=== PATIENT | male | born 1960 | race Caucasian/White ===

== ENCOUNTER → 2017-08-23 08:33 | Outpatient (CLI) | payer BC, SELFPAY ==
[2017-08-23 10:19] LABS: AST(SGOT) 28 U/L (15-37); Alanine Aminotransfer ALT/SGPT 40 U/L (16-61); Albumin, Serum 3.5 g/dL (3.2-5.0); Alkaline Phosphatase 73 U/L (45-117); Bilirubin, Direct 0.13 mg/dL (0.00-0.30); Cholesterol 119 mg/dL (200); Globulin 3.6 g/dL (2.2-4.2); High Density Lipoprotein 34 mg/dL; Protein, Total 7.1 g/dL (6.4-8.2); Triglycerides 96 mg/dL; Very Low Density Lipoprotein 19 mg/dL (5-40)
== END ==
PROVIDERS: Family Provider Family Medicine; PCP Family Medicine; Visit Provider Physician Assistant Medical
DX: E78.5 Hyperlipidemia, unspecified (principal); Z79.899 Other long term (current) drug therapy
CPT/HCPCS: 36415; 80061; 80076

== ENCOUNTER → 2018-10-16 06:04 | Outpatient (CLI) | payer OTHER, SELFPAY ==
--- NOTE | 2018-10-22 10:08 | STRESSREP_ITS ---
Stress Test Report Date: 10/16/2018 Procedure: Exercise tolerance test/imaging study Indications: Chest pain Consent: Per the patient Procedure: The patient exercised on a Andrez protocol for 7 minutes achieving a peak heart rate of 144 bpm (87 % predicted maximal heart rate) with a peak blood pressure 222/84 mmHg and a peak MET capacity of 8.5 METs. The baseline ECG demonstrated normal sinus rhythm. The peak exercise ECG demonstrated sinus tachycardia with about [address] depression in the inferior and lateral leads. EKG during recovery revealed normal sinus rhythm with return of ST segments to baseline [There were no cardiac dysrhythmias pretest, during exercise, or recovery]. The functional capacity was considered average for age. There was [no complaint of chest discomfort during exercise or recovery]. The examination was discontinued secondary to dyspnea. Impression: 1. Technically adequate (percent predicted maximal heart rate greater than 85%) exercise tolerance test 2. Stress test is negative for exercise-induced EKG changes of ischemia 3. The test test is negative for exercise-induced chest pain 4. Functional capacity is average for age 5. Nuclear images pending Myocardial perfusion imaging study: Technique: The patient was injected with 14.8 mCi of technetium 99m Cardiolite and subseq uently rest SPECT Cardiolite nuclear imaging was obtained in the horizontal long, vertical long, and short axis views. The patient exercised on a Andrez protocol. Please see above for details. The patient was injected with 44.7 mCi of technetium 99m Cardiolite and subsequently stress SPECT Cardiolite nuclear imaging was obtained in the horizontal long, vertical long, and short axis views. A gated Cardiolite study at peak stress was obtained. Interpretation: Rest and stress SPECT Cardiolite nuclear imaging status post realignment, normalization, and attenuation correction, demonstrates mild decrease in radioisotope uptake in the apex on both the rest and stress images which appears to be due to apical thinning, a normal variant. The gated Cardiolite study demonstrates no significant regional wall motion abnormalities. The reported LVEF is 64 %. Impression: 1. There is no evidence of significant ischemia or infarction. 2. The gated Cardiolite study reports an LVEF of 64 %. This note was generated with Geminareation software. It may contain incorrect words, spelling, and punctuation that were not noted in checking the note before signing.
== END ==
PROVIDERS: Family Provider Family Medicine; PCP Family Medicine; Referring Provider Family Medicine; Visit Provider Family Medicine
DX: I25.10 Atherosclerotic heart disease of native coronary artery without angina pectoris (principal); R07.9 Chest pain, unspecified
CPT/HCPCS: 78452; 93017; A9500; A4216

== ENCOUNTER → 2018-12-08 10:49 | Outpatient (CLI) | payer OTHER, SELFPAY ==
[2018-11-26 14:26] VITALS: BMI 41.3
--- NOTE | 2018-12-08 10:51 | ECHOCS_ITS ---
Reason For Study: CHEST PAIN Procedure This was a 2D Doppler, Color Flow transthoracic echocardiogram. The study was technically difficult. Contrast injection was performed. Exam performed in department. Left Ventricle Normal LV size. Left ventricular systolic function is normal. The estimated ejection fraction is 60 %. Transmitral doppler flow suggestive of impaired relaxation of left ventricle. No regional wall motion abnormalities noted. Right Ventricle Normal RV size. Normal systolic function. Atria The left atrium is mildly enlarged. Normal right atrium. No doppler evidence for ASD. Mitral Valve There is no mitral annular calcification. Normal mitral valve. Trivial mitral valve insufficiency. Tricuspid Valve Normal tricuspid valve. Trivial tricuspid valve insufficiency. Right ventricular systolic pressure estimated to be 34 mmHg. Aortic Valve Trisinus/trileaflet aortic valve. Mild focal aortic valve thickening. Pulmonic Valve The pulmonic valve is not well visualized. Great Vessels Mildly dilated ascending aorta. Pericardium/Pleural No pericardial effusion. Medication 22 gauge I.V. with prn adaptor inserted into right arm. Diluted definity 4.0ml given slow IV push to enhance endocardial definition. MMode/2D Measurements & Calculations LVIDd: 4.8 cm IVSd: 1.2 cm Ao root diam: 4.0 cm LVIDs: 3.3 cm LVPWd: 1.1 cm RVDd: 4.4 cm FS: 32.6 % LAV(MOD-bp): 69.7 ml LA A4 area: 24.0 cm2 LA dimension(2D): 3.9 cm LAV(MOD-bp) Indexed: 28.9 ml/m2 LAV(MOD-sp2): 62.2 ml LAV(MOD-sp4): 77.8 ml RA A4 area: 13.0 cm2 Time Measurements MV dec time: 0.24 sec Doppler Measurements & Calculations MV E max bert: 67.1 cm/sec Lat Peak E' Bert: 10.7 cm/sec Med Peak E' Bert: 10.5 cm/sec MV A max bert: 76.2 cm/sec E/E' lat: 6.3 E/E' med: 6.4 MV E/A: 0.88 Ao V2 max: 187.0 cm/sec LV V1 max: 134.6 cm/sec PA V2 max: 112.5 cm/sec Ao max P.0 mmHg LV V1 max P.2 mmHg TR max bert: 276.2 cm/sec TR max P.5 mmHg Interpretation Summary The study was technically difficult. Contrast injection was performed. Left ventricular systolic function is normal. The estimated ejection fraction is 60 %. The left atrium is mildly enlarged. Trivial mitral valve insufficiency. Trivial tricuspid valve insufficiency. Mild focal aortic valve thickening. Mildly dilated ascending aorta. Right ventricular systolic pressure estimated to be 34 mmHg. Transmitral doppler flow suggestive of impaired relaxation of left ventricle Ordering Physician: Sampson Lora Referring Physician: LUCY MAJANO Performed By: Mari Purdy, RDCS, RVT
== END ==
PROVIDERS: Family Provider Family Medicine; PCP Family Medicine; Referring Provider Internal Medicine Cardiovascular Disease; Visit Provider Internal Medicine Cardiovascular Disease
DX: R07.9 Chest pain, unspecified (principal); I25.10 Atherosclerotic heart disease of native coronary artery without angina pectoris; I10 Essential (primary) hypertension; E78.5 Hyperlipidemia, unspecified; Z95.5 Presence of coronary angioplasty implant and graft
CPT/HCPCS: 93306; Q9957; A4216; C8929

== ENCOUNTER 2018-12-09 06:50 | Day surgery (SDC) | payer OTHER, SELFPAY ==
[2018-11-26 14:26] VITALS: BMI 41.3
--- NOTE | 2018-12-04 16:29 | RAD_ITS ---
STUDY: X-RAY CHEST REASON FOR EXAM: Male, 58 years old. Chest pain TECHNIQUE: PA and lateral views of the chest. COMPARISON: Prior study of 08/12/2016 FINDINGS: The lungs are clear and expanded. There is no demonstrated pleural abnormality. Normal size heart. Normal mediastinum and dale. Normal visualized pulmonary arteries. Normal visualized aortic arch and descending thoracic aorta. There are diffuse degenerative changes of the visualized thoracic spine. Normal visualized ribs, clavicles, and shoulders. There is no demonstrated abnormality of the visualized soft tissue structures of the upper abdomen. RAD/Chest PA and Lateral IMPRESSION: Degenerative changes of the thoracic spine. No acute cardiopulmonary disease process is seen. Findings are stable in the interval. Electronically Signed: Myke Marrero MD at 23:58 EDT , Service support ,
[2018-12-04 16:55] LABS: Absolute Lymphocyte Count 2.17 X10^3/uL (0.83-4.51); Absolute Neutrophil Count 4.5 X10^3/uL (2.0-7.7); Basophil# 0.03 X10^3/uL; Basophil% 0.4 % (0-1); Eosinophil# 0.17 X10^3/uL; Eosinophils% 2.2 % (0-5); Hematocrit 48.6 % (40-54); Hemoglobin 16.7 g/dL (13.0-16.5); Lymphocyte # 2.17 X10^3/ul (4.0); Lymphocyte % 28.4 % (19-41); Mean Corp Hgb Conc 34.4 g/dL (32-36); Mean Corpuscular Volume 90.3 fL (80-94); Mean Platelet Vol. 9.1 fl (6.2-12.0); Monocyte# 0.79 X10^3/uL; Monocyte% 10.3 % (0-10); NRBC Flagged by Analyzer 0 % (0-5); Neutrophil # 4.46 X10^3/uL (2.7-7.7); Neutrophil % 58.4 % (47-70); Platelet Count 183 K/mm3 (150-450); RBC Distribution Width CV 12.4 % (11.6-14.6); RBC Distribution Width SD 40.6 fl (35.1-43.9); Red Blood Count 5.38 M/mm3 (4.6-6.2); White Blood Count 7.6 K/mm3 (4.4-11.0)
[2018-12-04 17:02] LABS: Anion Gap 4 (5-15); BUN 26 mg/dL (7-18); BUN/Creat Ratio 26.9 RATIO (10-20); Chloride 107 mmol/L (98-107); Creatinine, Serum 0.97 mg/dL (0.70-1.30); EST Glomerular Filtration Rate 85 mL/min (>60); Est Glom Filt Rate - Afr Amer 103 mL/min (>60); Glucose 278 mg/dL (74-106); Potassium 4.3 mmol/L (3.5-5.1); Sodium Level 137 mmol/L (136-145)
[2018-12-04 17:34] LABS: International Normalized Ratio 1.1; Prothrombin Time (Protime)PT. 13.6 SECONDS (11.7-14.9)
[2018-12-04 17:35] LABS: Partial Thromboplast Time 26.4 Seconds (24.1-36.2)
[2018-12-09] VITALS (21 sets, daily range): BP systolic 132–182; BP diastolic 65–97; PULSE 58–88; RESP 16–21; TEMP 36.4–36.7; O2SAT 92–97; BMI 38.9; BMI 39.2; BMI 39.1
--- NOTE | 2018-12-09 07:53 | HP.PCM_ITS ---
Problem List (1) Chest pain Status: Acute (2) CAD in [place] artery Status: Chronic (3) Stented coronary artery Status: Chronic (4) Hyperlipidemia Status: Chronic Qualifiers: (5) Essential hypertension Status: Chronic History and Physical Date of Admission: 12/09/18 [facility] [address] [place] [address] OFFICE VISIT Date of Service: 11/26/18 MR#: [id number] Acct: [id number] Name: ALISON MONAE Rep #: [id number] Provider: Sampson monae MD Age/Sex: 58/M Location: [facility] Status: Signed HPI HPI History of Present Illness Details: ALISON MONAE, is a 58 M who presents to the office today for for outpatient cardiovascular follow-up. Since his last visit he states his main concern for the last few months has been the sensation of feeling just somewhat dizzy and/or lightheaded. He is had no near syncope or syncope. He states this dizzy/lightheaded feeling is constant. Thus he is having it today. During this time today he did have an ECG performed. He was in a normal sinus rhythm with no obvious ectopy or dysrhythmia or conduction system events or pauses. Also at the same time his blood pressure appears to be within normal limits without evidence of hypo-or hypertension. He also has noted that he has been having episodes of jaw/neck/left shoulder discomfort. He states this feeling resembles what he had prior to his PCI but is not necessarily identical to what he had prior to his PCI. He states that he can be active and not noticed this but then with very minimal to no activity he can notice it. He has not used his nitroglycerin sublingual as he has not been totally convinced this is cardiac. He has had no issues of ongoing orthopnea or PND or worsening peripheral pitting edema. He did also, based on the symptoms, have a recent exercise tolerance test/imaging study performed in September of this year. This was considered negative for any definitive evidence of inducible myocardial ischemia. However he states since that time he continues with his symptoms that have been otherwise unexplained. 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[employer] Worker Required: No Accompanied by: Self Allergies No Known Allergies Allergy (Verified 11/26/18 14:27) Medications aspirin 81 mg tablet,delayed release 81 mg PO QDAY 11/10/17 [History Confirmed 11/26/18] nitroglycerin 0.4 mg sublingual tablet 0.4 mg SUBLINGUAL Q5-15M PRN #90 tab 11/10/17 [Rx Confirmed 11/26/18] prasugrel 10 mg tablet 10 mg PO QDAY #90 tab 03/25/18 [Rx Confirmed 11/26/18] metoprolol tartrate 25 mg tablet 25 mg PO BID #180 tab 06/30/18 [Rx Confirmed 11/26/18] lisinopril 10 mg tablet 10 mg PO BID #180 tab 07/03/18 [Rx Confirmed 11/26/18] pravastatin 80 mg tablet 80 mg PO QHS #90 tab 07/03/18 [Rx Confirmed 11/26/18] [facility] Medical History Essential hypertension (Chronic) Hyperlipidemia (Chronic) Atherosclerotic heart disease of [place] coronary artery without angina pectoris (Chronic) History of anterior wall myocardial infarction (Chronic 09/01/09) Surgical History Stented coronary artery (Chronic 09/01/09) History of left heart catheterization (Chronic 09/29/09) Family History Father , AGe [address] [place], ETOH CAD (coronary artery disease) Myocardial infarction ETOH abuse Mother , Age 56, Hepatitis C, drug use Hepatitis C Drug abuse Social History (Updated 11/26/18 @ 15:44 by Sampson Lora MD) Smoking Status: Former smoker pack-years: 25 ROS Const Const: Negative for fatigue, weakness, frequent falls, excessive sweating, weight gain or weight loss Eyes Eyes: Negative for transient loss of vision, blurry vision or change in vision ENT ENT: Positive for dizziness (slight, feeling off) and balance problems (slight) Cardio Chest Pain: No Palpitations: No Edema: None Muscle aches with walking: None Additional Details: Patient denies CP, however, reports experiencing intermittant jaw pain which is similar to what was experienced prior to stent 09/01/09. Pain noted with both activity and rest. Resp Respiratory: Negative for SOB with activity or SOB at rest GI GI: Negative vomiting or vomiting blood/hematemesis : Negative for hematuria Musc Musc: Positive for balance problems (slight); negative for muscle aches/ myalgia, muscle weakness or joint pain Skin Skin: Negative non-healing lesions or rash Neuro Neuro: Positive for dizziness (slight, feeling off); negative for lightheadedness, orthostatic symptoms, frequent falls, weakness or blurry vision Cosme Hematologic/Lymphatic: Negative for easy bleeding Endo Endo: Negative for fatigue or excessive sweating Psych Psych: Negative for anxiety or depression Allergy Allergy/Immunology: Negative for hives, Negative for rash Cardiology Exam Const Appearance: cooperative, comfortable, no acute distress and well groomed Nutritional Appearance: overweight Orientation: alert, awake and oriented x3 Head Head: normal to inspection, normocephalic and atraumatic Ears: hearing grossly normal bilaterally Nose: external nose normal Mouth: oral mucosae normal Teeth and gingiva: fair dentition Eyes Eyelids: eyelids normal Conjunctivae: conjunctivae normal Pupils: PERRL EOM: EOM intact bilaterally Neck Neck: normal visual inspection, full ROM and trachea midline Carotids: normal carotid upstroke Chest Chest inspection: normal inspection of the chest and symmetric chest movement Auscultation: Bilateral: Clear to Auscultation Cardio Palpation: normal PMI Rate: regular rate Rhythm: regular rhythm and ectopic beats Heart sounds: S1 normal, S2 normal and positive S4 GI GI: normal to inspection, soft and bowel sounds present Neuro General: alert, awake, oriented x3, gait normal, moves all extremities, no focal sensory deficit and no focal motor deficits Skin Skin: no rashes or lesions noted Extremities Pulses: Normal: Right Radial Pulse, Left Radial Pulse Lower Extremity Edema: None: Bilateral Psych Psychological: normal affect Assessment & Plan 1. Atherosclerosis of [place] coronary artery of [place] heart without angina pectoris I25.10 Proximal LAD 100% stenosis: 3.0 X [address] [place] [employer] [facility]RIS [address] Cedric Gore, [facility] Plan At the present time there are concerns based upon his cardiovascular risk factors, his previous diagnosis, and his ongoing symptoms, as to whether this could represent underlying CAD whether it be his vessel that required PCI in the past versus another vessel versus being noncardiac. Based upon the overall concern, despite his stress test findings, it was felt reasonable that he be considered for reevaluation with diagnostic cardiac catheterization. The procedure and risks were discussed with him. He was agreeable to this approach. Orders Orders: 12 Lead EKG performed by [facility] Today Left Heart Cath/COR/LV Percut Today Echo Complete Today Basic Metabolic Profile (BMP) Today Partial Thromboplast Time Today Prothrombin Time w/INR Today CBC W/Diff, Automated Today Chest PA and Lateral Today 2. Stented coronary artery Z95.5 Plan He does have a history of previous PCI. This was to the LAD. 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 Orders Orders: 12 Lead EKG performed by [facility] Today Left Heart Cath/COR/LV Percut Today Echo Complete Today Basic Metabolic Profile (BMP) Today Partial Thromboplast Time Today Prothrombin Time w/INR Today CBC W/Diff, Automated Today Chest PA and Lateral Today 3. Hyperlipidemia, unspecified hyperlipidemia type E78.5 Plan He will continue risk factor evaluation care. Orders Orders: Left Heart Cath/COR/LV Percut Today Echo Complete Today Basic Metabolic Profile (BMP) Today Partial Thromboplast Time Today Prothrombin Time w/INR Today CBC W/Diff, Automated Today Chest PA and Lateral Today 4. Essential hypertension I10 Plan His blood pressure appears to be stable at this time. We will continue medical management. Orders Orders: Left Heart Cath/COR/LV Percut Today Echo Complete Today Basic Metabolic Profile (BMP) Today Partial Thromboplast Time Today Prothrombin Time w/INR Today CBC W/Diff, Automated Today Chest PA and Lateral Today 5. Jaw pain R68.84 Plan He does have jaw discomfort. Again he states this is similar but not necessarily identical to what he had prior to his previous PCI. Thus based upon the aforementioned concerns he will proceed with continued medical management and evaluation as noted above. 6. Dizziness R42 Plan He does have dizziness. The etiology is unclear. However it does not appear to correlate with underlying changes in rate, rhythm, or blood pressure. Thus he may need to be further evaluated by either ENT or neurology for this. Plan Detail Other Orders Orders: Left Heart Cath/COR/LV Percut Today R07.9 Echo Complete Today R07.9 Basic Metabolic Profile (BMP) Today R07.9 Partial Thromboplast Time Today R07.9 Prothrombin Time w/INR Today R07.9 CBC W/Diff, Automated Today R07.9 Chest PA and Lateral Today R07.9 Additional Comments The above was discussed with him and he was agreeable to this approach. Thank you for allowing me to participate in the care of your patient. Please don't hesitate to call if any issues arise. This note was generated using a voice recognition system and there may be incorrect words, spelling or punctuation that were not noted when reviewing the office note prior to saving. Follow Up 01/04/19 (PFM) Coding Level of Care Code Off vis,est,level 5 Diagnoses Atherosclerosis of [place] coronary artery of [place] heart without angina pectoris I25.10 ??[place] vs. transplanted heart: [place] heart Stented coronary artery Z95.5 Hyperlipidemia, unspecified hyperlipidemia type E78.5 ??Hyperlipidemia type: unspecified Essential hypertension I10 Jaw pain R68.84 Dizziness R42 Coding Level of Care Code Off vis,est,level 5 Diagnoses Atherosclerosis of [place] coronary artery of [place] heart without angina pectoris I25.10 ??[place] vs. transplanted heart: [place] heart Stented coronary artery Z95.5 Hyperlipidemia, unspecified hyperlipidemia type E78.5 ??Hyperlipidemia type: unspecified Essential hypertension I10 Jaw pain R68.84 Dizziness R42 Supplemental Info Supplemental Information Stress Test Report Date: 10/16/2018 Procedure: Exercise tolerance test/imaging study Indications: Chest pain Consent: Per the patient Procedure: The patient exercised on a Andrez protocol for 7 minutes achieving a peak heart rate of 144 bpm (87 % predicted maximal heart rate) with a peak blood pressure 222/84 mmHg and a peak MET capacity of 8.5 METs. The baseline ECG demonstrated normal sinus rhythm. The peak exercise ECG demonstrated sinus tachycardia with about [address] depression in the inferior and lateral leads. EKG during recovery revealed normal sinus rhythm with return of ST segments to baseline [There were no cardiac dysrhythmias pretest, during exercise, or recovery]. The functional capacity was considered average for age. There was [no complaint of chest discomfort during exercise or recovery]. The examination was discontinued secondary to dyspnea. Impression: 1. Technically adequate (percent predicted maximal heart rate greater than 85%) exercise tolerance test 2. Stress test is negative for exercise-induced EKG changes of ischemia 3. The test test is negative for exercise-induced chest pain 4. Functional capacity is average for age 5. Nuclear images pending Myocardial perfusion imaging study: Technique: The patient was injected with 14.8 mCi of technetium 99m Cardiolite and subsequently rest SPECT Cardiolite nuclear imaging was obtained in the horizontal long, vertical long, and short axis views. The patient exercised on a Andrez protocol. Please see above for details. The patient was injected with 44.7 mCi of technetium 99m Cardiolite and subsequently stress SPECT Cardiolite nuclear imaging was obtained in the horizontal long, vertical long, and short axis views. A gated Cardiolite study at peak stress was obtained. Interpretation: Rest and stress SPECT Cardiolite nuclear imaging status post realignment, normalization, and attenuation correction, demonstrates mild decrease in radiois otope uptake in the apex on both the rest and stress images which appears to be due to apical thinning, a normal variant. The gated Cardiolite study demonstrates no significant regional wall motion abnormalities. The reported LVEF is 64 %. Impression: 1. There is no evidence of significant ischemia or infarction. 2. The gated Cardiolite study reports an LVEF of 64 %. Labs LDL Cholesterol 66 mg/dL (0-130) 08/23/17 HDL Cholesterol 34 mg/dL (40-) L 08/23/17 Triglycerides 96 mg/dL (-199) 08/23/17 VLDL Cholesterol 19 mg/dL (5-40) 08/23/17 Diagnostics Electrocardiogram 11/26/18 Stress Test Nuclear Medicine 10/16/18 Stress Test 10/22/18 Chest X-Ray 08/12/16 11/26/18 [id number] <Electronically signed by Sampson samuels MD> Date _ Sampson Lora MD I have re-examined the patient. There are no clinical changes since date of exam.
--- NOTE | 2018-12-09 09:42 | EKG12_ITS ---
Test Reason : POST PCI Blood Pressure : / mmHG Vent. Rate : 063 BPM Atrial Rate : 063 BPM P-R Int : 150 ms QRS Dur : 086 ms QT Int : 416 ms P-R-T Axes : 045 035 037 degrees QTc Int : 425 ms Normal sinus rhythm Normal ECG Confirmed by CATIA BALDWIN, SAMPSON ([id number]), technical editor ERAN PATINO ([id number]) on 12/16/2018 3:12:12 PM Referred By: Sampson Bardales Confirmed By:SAMPSON BARDALES MD
[2018-12-09] MEDS: 0.9% Normal Saline 1,000 ML 150 ML IV (10:15)
[2018-12-09 10:56] LABS: ACT Activated Clotting Time 153 sec (74-137)
[2018-12-09] MEDS: Midazolam 2 MG/2 ML Syringe 1 MG IV (11:36)
[2018-12-09] MEDS: fentaNYL 100 MCG/2 ML Ampul 25 MCG IV (11:36)
[2018-12-09] MEDS: 0.9% NaCl Peripheral Flush Adult/Peds IV (11:37)
--- NOTE | 2018-12-09 13:54 | CRPHASE1_ITS ---
Patient Communication Former Patient:: Phase II PHII Cardiac Rehab Discussed with Patient:: Yes Guide to Cardiac Rehab Given to Patient:: Yes Cardiac Rehab Facility Choice List Given to Patient:: Yes - [facility] Choice Program [facility] CR PHII:: Communication Given to CR, Refer to [facility] Data Processing Consultant:: Sampson Lora PCP:: [facility] Sessions:: 36 sessions - 3 days/wk, 12 weeks Risk Factors/Lifestyle Smoking Status: Former smoker Hx Hypertension: Yes Hx Diabetes Mellitus Type 2: No Height: 1.78 m Weight:: 124 kg BMI: 39.1 Stress: Home/Family ETOH: No Caffeine: Yes Substance Abuse: No Family History: Family History (Last Reviewed 11/26/18 @ 14:27 by Jennifer Shultz) Father CAD (coronary artery disease) Myocardial infarction ETOH abuse Mother Hepatitis C Drug abuse Past Cardiac Illness: Coronary Artery Disease, Previous PCI w/Stent Phase I Education Given On:: [place] Issues Affecting Care:: None Knowledge of Condition:: Yes Hospital Course Pain Description: Burning, Tightness, Aching Cardiac Cath Date:: 12/09/18 Medical/Surgical History Angina:: Yes Diabetes Type II:: No Hypertension:: Yes Dyslipidemia:: Yes Discharge/Home/Social Eval Discharge Disposition: Home Marital Status: Cardiac Rehabilitation Info Cardiac Rehabilitation Program Information: Cardiac Rehabilitation is important for patients like you who are recovering from a heart problem. Cardiac rehabilitation programs are recognized as integral to the continued care of the patient with coronary heart disease. The cardiac rehabilitation program is designed to optimize a patient's physical, psychological, and social functioning. Health respiratory care program director work in cardiac rehabilitation programs and assist you with getting the treatments you need to get stronger and healthier - like exercise, healthy eating habits, and medications. Cardiac rehabilitation has been show to help people with heart problems live longer and have better life enjoyment than people who do not go to cardiac rehabilitation. Please contact the Cardiac Rehabilitation Program at [facility] at in two weeks if you have not heard from them.
--- NOTE | 2018-12-09 13:56 | CRPH1.INSTRU ---
General Education CAD and cardiac anatomy and function:: Patient communicates acknowledgment Explanation of diagnoses and procedures:: Patient communicates acknowledgment Sign/Symptoms of [place]:: Patient communicates acknowledgment Antiplatelet therapy: Needs reinforcement Proper use of NTG-SL: Needs reinforcement Emergency procedures and activation of EMS: Patient communicates acknowledgment Compliance of all prescribed medications: Needs reinforcement Smoking Patient Nicotine/Smoking Risk Factors Are:: Non-smoker Dyslipidemia Patient Dyslipidemia Risk Factors Are:: Triglycerides - 96, HDL - 34, LDL - 66 Recommendations Include:: Lipid profile provided Dyslipidemia Response Code:: Patient communicates acknowledgment Overweight/Obesity Patient Overweight/Obesity Risk Factors Are:: Overweight = 26-29 Overweight/Obesity:: Patient communicates acknowledgment Hypertension Recommendations Include:: Maintain BP <130/85, Decrease/maintain normal body weight, Moderation of ETOH Heart Disease Patient Heart Disease Risk Factors Are:: Family history of heart disease < 65 years old, Previous cardiac event Heart Disease Response Code:: Patient communicates acknowledgment Diabetes Patient Diabetes Risk Factors Are:: No documented hx of diabetes Metabolic Syndrome Patient Metabolic Syndrome Risk Factors Are [3 of 5]:: Waist circumference > 35 [female] or 40 [male], Hypertension Sedentary Patient Sedentary Risk Factors Are:: Lack of regular exercise Recommendations Include:: Discussed home walking program Stress Patient Stress Risk Factors Are:: Patient denies stress as a risk factor
[2018-12-09] MEDS: Loratadine 10 MG Tablet PO (15:48)
[2018-12-09] MEDS: Metoprolol Tartrate 25 MG Tablet PO (21:24)
[2018-12-09] MEDS: Atorvastatin Calcium 80 MG Tablet PO (21:24)
[2018-12-09] MEDS: Lisinopril 10 MG Tablet PO (21:24)
[2018-12-09] MEDS: diazePAM 5 MG Tablet PO (21:27)
[2018-12-10] VITALS (12 sets, daily range): BP systolic 127–177; BP diastolic 62–92; PULSE 55–94; RESP 17–23; TEMP 36.3–36.9; O2SAT 91–95
[2018-12-10 05:24] LABS: Hematocrit 44.8 % (40-54); Hemoglobin 15.1 g/dL (13.0-16.5); Mean Corp Hgb Conc 33.7 g/dL (32-36); Mean Corpuscular Hgb 30.9 pg (27.0-32.0); Mean Corpuscular Volume 91.8 fL (80-94); Mean Platelet Vol. 8.7 fl (6.2-12.0); Platelet Count 163 K/mm3 (150-450); RBC Distribution Width CV 12.5 % (11.6-14.6); RBC Distribution Width SD 42.5 fl (35.1-43.9); Red Blood Count 4.88 M/mm3 (4.6-6.2)
[2018-12-10 05:55] LABS: ALB/GLOB Ratio 0.8 RATIO (0.9-2.4); AST(SGOT) 16 U/L (15-37); Alanine Aminotransfer ALT/SGPT 26 U/L (16-61); Albumin, Serum 3.1 g/dL (3.2-5.0); Alkaline Phosphatase 71 U/L (45-117); Anion Gap 7 (5-15); BUN 16 mg/dL (7-18); BUN/Creat Ratio 23.5 RATIO (10-20); Calcium,Total 8.5 mg/dL (8.5-10.1); Chloride 106 mmol/L (98-107); Cholesterol 141 mg/dL (200); Creatinine, Serum 0.68 mg/dL (0.70-1.30); EST Glomerular Filtration Rate 128 mL/min (>60); Est Glom Filt Rate - Afr Amer 154 mL/min (>60); Estimated Creatinine Clearance 125.25 ml/min; Globulin 3.9 g/dL (2.2-4.2); Glucose 266 mg/dL (74-106); High Density Lipoprotein 31 mg/dL; Potassium 4.2 mmol/L (3.5-5.1); Sodium Level 137 mmol/L (136-145); Triglycerides 152 mg/dL; Very Low Density Lipoprotein 30 mg/dL (5-40)
--- NOTE | 2018-12-10 08:22 | PCM.DC ---
- Discharge Diagnoses Current Active Problems: Current Active and Chronic Problems (Last Reviewed 11/26/18 @ 14:27 by Jennifer Shultz) Chest pain (Acute) CAD in [place] artery (Chronic) Reason(s) for Visit for Discharge Instructions: Chest pain/angina pectoris You will use the following diet at home:: Cardiac Your food should be the consistency of: Regular Discharge Activity: May Not Drive - May not drive: X48 hours, May Shower - May shower today, May Take a Tub Bath - May not take a tub bath x7 days May resume sexual activity in: 2 weeks Weight Bearing Status: Weight bearing as tolerated Lifting Restrictions: Avoid heavy exertional lifting/activity until at least 12-14-18 and then res Call your doctor if your incision/area has: Continuous Slow Oozing, Sudden Increased Bleeding, Increased Pain/ Swelling, Increased Redness, Foul Smelling Discharge Call your doctor if you observe: Fever of 101 or Higher, Shortness of breath, Fainting spells, Chest pain, Calf discomfort Change Dressing in (Days):: 1 Remove Dressing in (days):: 1 Cleanse incision/area with: Soap & Water Additional Instructions: Medication change: Change lisinopril from 10 mg orally twice a day to 20 mg orally twice a day Allergies/Adverse Reactions: Allergies No Known Allergies Allergy (Verified 11/26/18 14:27) Medications to take at Discharge aspirin 81 mg tablet,delayed release 325 mg PO QDAY 11/10/17 nitroglycerin 0.4 mg sublingual tablet 0.4 mg SUBLINGUAL Q5-15M PRN #90 tab 11/10/17 prasugrel 10 mg tablet 10 mg PO QDAY #90 tab 03/25/18 metoprolol tartrate 25 mg tablet 25 mg PO BID #180 tab 06/30/18 pravastatin 80 mg tablet 80 mg PO QHS #90 tab 07/03/18 Lisinopril [Zestril] 20 mg PO BID #180 tab 12/10/18 Loratadine [Claritin] 10 mg PO DAILY tablet 12/10/18 The following prescriptions were given: Lisinopril [Zestril] 20 mg PO BID #180 tab Transmission Status: Pending to [id number] Primary Care Physician: Hu Hodges MD [Primary Care Provider] - Test Results: Test results from this visit will be discussed in further detail at your follow-up appointment, if applicable. Please Follow Up With: Sampson Lora MD When: [facility] to schedule outpatient follow up appointment
--- NOTE | 2018-12-10 08:39 | DS.PCM_ITS ---
Discharge Date and Diagnosis - Problem List Patient Problems: Active and Suspected Problems (Last Reviewed 11/26/18 @ 14:27 by Jennifer Shultz) Chest pain (Acute) Date of Admission: 12/09/18 Date of Discharge: 12/10/18 - Primary Discharge Diagnosis Active and Suspected Problems (Last Reviewed 11/26/18 @ 14:27 by Jennifer Shultz) Chest pain (Acute) - Secondary Discharge Diagnosis Chronic Problems (Last Reviewed 11/26/18 @ 14:27 by Jennifer Shultz) CAD in [place] artery (Chronic) Essential hypertension (Chronic) Hyperlipidemia (Chronic) Stented coronary artery (Chronic 12/09/18) Proximal LAD 100% stenosis: 3.0 X [address] [place] Sprint CHRIS [address]. Cedric Gore, [facility] 09/01/2009; CHRIS to mid RCA (4.0 X 32 mm Promus Syncergy) per CANDIDA @ [facility] 12/09/2018 Atherosclerotic heart disease of [place] coronary artery without angina pectoris (Chronic) Proximal LAD 100% stenosis: 3.0 X [address] [place] Sprint CHRIS [address]. Cedric Gore, [facility] Hospital Course and Treatment Procedures: Cardiac catheterization, - - Cardiac intervention Summary of Care Provided: The patient is a 58 year old white male with a past medical history of CAD status post LAD PCI remote who presented for symptoms concerning for angina pectoris who was referred for further evaluation with diagnostic cardiac catheterization. Diagnostic cardiac catheterization was performed and demonstrated findings of overall preserved left ventricular wall motion and systolic function, and LAD stent which was patent, no angiographically significant appearing CAD in the LCx distribution, however, he did have angiographically significant appearing CAD in the RCA distribution. He subsequently underwent RCA PCI/CHRIS. He was monitored in the ICU overnight. He appeared to be symptomatically and hemodynamically stable. On this day he was felt appropriate for discharge home for continued outpatient cardiovascular follow-up. [] Patient Problems: Active and Suspected Problems (Last Reviewed 11/26/18 @ 14:27 by Jennifer Shultz) Chest pain (Acute) Subjective: This is a 58-year-old white male who appears to be awake and alert and in no acute distress. - Physical Exam General: Alert, Oriented x3, Cooperative, No apparent distress HEENT: Atraumatic, PERRLA, EOMI, Normocephalic Oral: Moist Mucosa Neck: Supple, No JVD Lungs: Clear to auscultation Cardiovascular: Regular rate, Regular Rhythm, Normal S1, Normal S2 Abdomen: Bowel Sounds Present, Soft, Non Tender Extremities: No clubbing, No cyanosis, No edema Skin: No rashes Neurological: Neuro grossly intact Psych/Mental Status: Normal Affect Comment: Right femoral artery: Pulse 2+/4+: No bruits: No hematoma Vital Signs Temp Pulse Resp BP Pulse Ox 97.4 F L 65 19 H 134/92 H 93 12/10/18 04:00 12/10/18 06:00 12/10/18 06:00 12/10/18 06:00 12/10/18 07:25 Oxygen Delivery Method Room Air Weight: 279 lb 8.738 oz Body Mass Index (BMI) 39.2 Intake and Output for Last 24 Hours 12/08/18 12/09/18 12/10/18 23:59 23:59 23:59 Intake Total 1660 / 2060 400 / 400 Output Total 300 / 300 Balance 1360 / 1760 400 / 400 Laboratory Tests Past 24 Hrs 12/09/18 12/10/18 12/10/18 09:17 05:10 05:10 WBC 8.0 RBC 4.88 Hgb 15.1 Hct 44.8 MCV 91.8 MCH 30.9 MCHC 33.7 RDW Std Deviation 42.5 RDW Coeff of Santosh 12.5 Plt Count 163 MPV 8.7 Activated Clotting Time 153 H Sodium 137 Potassium 4.2 Chloride 106 Carbon Dioxide 24.0 Anion Gap 7 BUN 16 Creatinine 0.68 L Estim Creat Clear Calc 125.25 Est GFR (MDRD) Af Amer 154 Est GFR (MDRD) Non-Af 128 BUN/Creatinine Ratio 23.5 H Glucose 266 H Calcium 8.5 Total Bilirubin 0.50 AST 16 ALT 26 Alkaline Phosphatase 71 Total Protein 7.0 Albumin 3.1 L Globulin 3.9 Albumin/Globulin Ratio 0.8 L Triglycerides 152 Cholesterol 141 LDL Cholesterol 80 VLDL Cholesterol 30 HDL Cholesterol 31 L Discharge Activity: May Not Drive - May not drive: X48 hours, May Shower - May shower today, May Take a Tub Bath - May not take a tub bath x7 days May resume sexual activity in: 2 weeks Weight Bearing Status: Weight bearing as tolerated Call your doctor if your incision/area has: Continuous Slow Oozing, Sudden Increased Bleeding, Increased Pain/ Swelling, Increased Redness, Foul Smelling Discharge Call your doctor if you observe: Fever of 101 or Higher, Shortness of breath, Fainting spells, Chest pain, Calf discomfort Change Dressing in (Days):: 1 Remove Dressing in (days):: 1 Cleanse incision/area with: Soap & Water Home Medications: Medications to take at Discharge aspirin 81 mg tablet,delayed release 325 mg PO QDAY 11/10/17 nitroglycerin 0.4 mg sublingual tablet 0.4 mg SUBLINGUAL Q5-15M PRN #90 tab 11/10/17 prasugrel 10 mg tablet 10 mg PO QDAY #90 tab 03/25/18 metoprolol tartrate 25 mg tablet 25 mg PO BID #180 tab 06/30/18 pravastatin 80 mg tablet 80 mg PO QHS #90 tab 07/03/18 Lisinopril [Zestril] 20 mg PO BID #180 tab 12/10/18 Loratadine [Claritin] 10 mg PO DAILY tablet 12/10/18 Following Prescrptions Were Given to Patient: Lisinopril [Zestril] 20 mg PO BID #180 tab Transmission Status: Pending to [id number] Primary Care Physician: Hu Hodges MD [Primary Care Provider] - Please Follow Up With: Sampson Lora MD When: [facility] to schedule outpatient follow up appointment Disposition: Home Minutes spent on discharge:: 45 Patient Condition:: Stable Medical Necessity - Tobacco Use Smoking Status: Former smoker Tobacco Use: Non-smoker Meaningful Use Info Meaningful Use Diagnoses (Choose all that apply): None applicable
[2018-12-10] MEDS: Aspirin E.C. 81 MG Tablet PO (08:57)
[2018-12-10] MEDS: Metoprolol Tartrate 25 MG Tablet PO (08:58)
[2018-12-10] MEDS: Lisinopril 20 MG Tablet PO (09:01)
--- NOTE | 2018-12-10 10:00 | EKG12_ITS ---
Test Reason : AM EKG Blood Pressure : / mmHG Vent. Rate : 068 BPM Atrial Rate : 068 BPM P-R Int : 148 ms QRS Dur : 086 ms QT Int : 412 ms P-R-T Axes : 039 018 039 degrees QTc Int : 438 ms Normal sinus rhythm Normal ECG Confirmed by CATIA BALDWIN, SAMPSON ([id number]), food editor WOOD ANGUIANO ([id number]) on 12/16/2018 11:11:45 AM Referred By: Sampson Bardales Confirmed By:SAMPSON BARDALES MD
--- NOTE | 2018-12-17 09:58 | CL.I_ITS ---
Patient Name: LAWRENCE MONAE Study Date: 12/09/2018 Performing: Lawrence Singh MD Ht: 70 inches 177.8 cm : 1960 Wt: 270.99 lbs 122.92 kg Age: 58 Gender: male BSA: 2.37 PROCEDURE(S) PERFORMED [id number] W OR WO PTCA, SINGLE CORONARY ARTERY CLINICAL PROFILE AND CO-MORBIDITIES Indications: New Onset Angina <= 2 months, Worsening Angina, Stable Known CAD Heart Failure: None Stress/Imaging Date: 10/22/2018 Stress Test with SPECT MPI: Negative CAD Presentations: Unstable angina. CONCLUSIONS Successful PTCA/CHRIS mid RCA with a 4.0 x 32 Promus Synergy, post dilated proixmally with a 4.5 and 5. 0 NC Balloon; 85%-->0%, no dissection. 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 Lora Successful Mynx Control to RFA. DESCRIPTION OF PROCEDURE The patient arrived to the procedure lab. The risks and benefits of the procedure as well as a full d escription of our services here and current unavailability of surgical backup were fully explained to the patient and/or their significant other prior to the catheterization. The Timeout was completed, verifying the correct patient and procedure. The patient's procedural site was prepped and draped in the usual fashion. Local anesthetic was given subcutaneously to right groin region with Lidocaine 2% Using a modified Seldinger technique,arterial access was obtained via the right femoral artery, a 4Fr sheath was inserted Left Coronary Artery selective angiography was performed in multiple views using a 4 Fr. JL5 catheter. Right Coronary Artery selective angiography was then performed in multiple vie ws using a 4 Fr. 3DRC catheter. Left Ventriculography was performed in SUAZO projection using a 4 Fr. P igtail catheter. LV to AO pullback pressures were then recorded.The images were reviewed and options discussed. A decision was then made to proceed with an Intervention, IVUS or other adjunc t procedure. Arterial sheath was exchanged for a 6fr 55cm sheath HS II Guide catheter was inserted and engaged into the RCA. BMW Guide wire was advanced to the RCA. Emerge 2.0x12 Balloon catheter was inserted. P TCA balloon inflated at 10 atms for 15 secs. PTCA balloon inflated at 12 atms for 15 secs. Angiogram performed post balloon dilatation. Emerge 3.0x12 Balloon catheter was inserted. PTCA balloon inflated at 8 atms for 12 secs. Angiogram performed post balloon dilatation. Synergy 4.0x32 Drug Eluting sten t was inserted. Angiogram performed post stent deployment. NC Emerge 4.50x8 Balloon catheter was inse rted. Angiogram performed post balloon dilatation. NC Emerge 4.5x8 Balloon catheter was inserted. PTC A balloon inflated at 6 atms for 6 secs. PTCA balloon inflated at 7 atms for 9 secs. Angiogram perfor med post balloon dilatation. NC Emerge 5.00x8 Balloon catheter was inserted. PTCA balloon inflated at 14 atms for 24 secs. Angiogram performed post balloon dilatation. Arterial sheath was exchanged for a 6 Fr Sheath. Contrast was injected through the sheath and the Right Iliac and Femoral artery were assessed for possible closure device. The arterial sheath was pulled and a Mynx closure device was deployed for hemostasis INTERVENTION INFORMATION LESION SITE: RCA (Mid) Lesion Complexity: High/C, lesion at bifurcation: No, thrombus present: No, lesion length: 32 mm, cul prit lesion: Yes Pre Stenosis: 85 % Pre intervention [place] flow: 3 PROCEDURE: Drug Eluting Stent with pre and post dilatation Post Stenosis: 0 % Post intervention [place] flow: 3 Lesion Devices: Joe .014 BMW [place] Straight 190cm [employer]tronic 6 Fr HSII 100cm Guide Catheter Mo Sci EMERGE MR 2.00x12 BALLOON Mo Sci EMERGE MR 3.00x12 BALLOON Mo Sci Synergy MR CHRIS 4.00x32 Mo Sci NC EMERGE MR 4.50x08 BALLOON Mo Sci NC EMERGE MR 5.00x08 BALLOON COMPLICATIONS No Complications PROCEDURE MEDICATIONS Versed 1 mg IV Oxygen: 2 L/min via nasal cannula Heparin 6000 unit(s) IV 12/09/2018 08:48:10 Nitro 200 mcg IC 12/09/2018 08:48:57 Nitro 200 mcg IC 12/09/2018 08:48:57 Nitro 200 mcg IC 12/09/2018 09:08:15 SUMMARY OF HEMODYNAMIC DATA Time AIR REST ECG 07:06:23 AO 110/84 (98) SA 08:29:05 LV 158/-4, 29 08:36:21 LV 159/-5, 26 08:36:27 LV 160/-5, 23 08:37:25 LVp 159/-5, 24 08:37:30 AOp 144/91 (115) 08:37:35 Signed By Lawrence Singh MD On 12/09/2018 09:36:55 Lawrence Singh MD
--- NOTE | 2018-12-17 09:59 | CL.D_ITS ---
Patient Name: ALISON MONAE Study Date: 12/09/2018 Performing: Sampson Lora MD Ht: 70 inches 177.8 cm : 1960 Wt: 271.3 lbs 122.92 kg Age: 58 Gender: male BSA: 2.37 PROCEDURE(S) PERFORMED [id number]/COR/LV NN41-VUM W OR WO PTCA, SINGLE CORONARY ARTERY CLINICAL PROFILE AND INDICATIONS Indications: New Onset Angina <= 2 months, Worsening Angina, Stable Known CAD, Worsening Angina Heart Failure: None Stress/Imaging Date: 10/22/2018Stress Test with SPECT MPI: Negative Angina Classification Anginal Classification w/in 2 Weeks: CCS III CAD Presentations: Unstable angina. Unstable angina. CONCLUSIONS Elevated Left Ventricular End Diastolic Pressure Normal LV size, wall motion,and systolic function LVEF: by LV gram 60 % [place] Multivessel CAD RECOMMENDATIONS Risk factor modification Medical therapy Referred for immediate PCI DESCRIPTION OF PROCEDURE The patient arrived to the procedure lab. The risks and benefits of the procedure as well as a full d escription of our services here and current unavailability of surgical backup were fully explained to the patient and/or their significant other prior to the catheterization. The Timeout was completed, verifying the correct patient and procedure. The patient's procedural site was prepped and draped in the usual fashion. Local anesthetic was given subcutaneously to right groin region with Lidocaine 2%. Using a modified Seldinger technique, arterial access was obtained via the right femoral artery, a 4 Fr sheath was inserted Left Coronary Artery selective angiography was performed in multiple views us ing a 4 Fr. JL5 catheter. Right Coronary Artery selective angiography was then performed in multiple views using a 4 Fr. 3DRC catheter. Left Ventriculography was performed in SUAZO projection using a 4 Fr . Pigtail catheter. LV to AO pullback pressures were then recorded.Contrast was injected through the sheath and the Right Iliac and Femoral artery were assessed for possible closure device.T he arterial sheath was pulled and a Mynx closure device was deployed for hemostasis CORONARY ANGIOGRAPHY LEFT HEART ASSESSMENT Left Ventricular Ejection Fraction: by LV Gram 60 % Normal LV wall motion Elevated Left Ventricular End Diastolic Pressure LVEDP: 26 mmHg LEFT MAIN: Angiographically normal LEFT ANTERIOR DESCENDING ARTERY: PROX LAD: Previously placed stent is patent MID LAD: smooth eccentric 10 - 25 % Stenosis CIRCUMFLEX ARTERY: Mild luminal irregularities RAMUS: Mild luminal irregularities RIGHT CORONARY ARTERY: PROX RCA: Mild luminal irregularities MID RCA: 90 % Stenosis DISTAL RCA: Mild luminal irregularities VALVE FINDINGS: Normal Aortic Valve function Normal Mitral Valve function AORTIC ROOT: Angiographically normal COMPLICATIONS No Complications PROCEDURE MEDICATIONS Versed 1 mg IV Oxygen: 2 L/min via nasal cannula Heparin 6000 unit(s) IV 12/09/2018 08:48:10 Nitro 200 mcg IC 12/09/2018 08:48:57 Nitro 200 mcg IC 12/09/2018 08:48:57 Nitro 200 mcg IC 12/09/2018 09:08:15 SUMMARY OF HEMODYNAMIC DATA Time AIR REST ECG 07:06:23 AO 110/84 (98) SA 08:29:05 LV 158/-4, 29 08:36:21 LV 159/-5, 26 08:36:27 LV 160/-5, 23 08:37:25 LVp 159/-5, 24 08:37:30 AOp 144/91 (115) 08:37:35 Signed By Sampson Lora MD On 12/09/2018 20:41:17 Sampson Lora MD
== END 2018-12-10 08:26 | disposition home or self-care (01) ==
LOC: CLSP 06:51 → ICU 09:29
PROVIDERS: Internal Medicine Cardiovascular Disease; Family Provider Family Medicine; PCP Family Medicine; Referring Provider Internal Medicine Cardiovascular Disease; Visit Provider Internal Medicine Cardiovascular Disease
DX: I25.10 Atherosclerotic heart disease of native coronary artery without angina pectoris (principal); I25.2 Old myocardial infarction; I10 Essential (primary) hypertension; E78.5 Hyperlipidemia, unspecified; R07.9 Chest pain, unspecified; R68.84 Jaw pain; R42 Dizziness and giddiness; Z95.5 Presence of coronary angioplasty implant and graft; Z79.82 Long term (current) use of aspirin; Z79.899 Other long term (current) drug therapy; Z87.891 Personal history of nicotine dependence
CPT/HCPCS: 36415; 71046; 80048; 80053; 80061; 85025; 85027; 85347; 85610; 85730; 92928; 93005; 93458; C1760; J7030; J7040; Q9967; A4216; C1725; C1769; C1874; C1887; C1894; C9600

== ENCOUNTER → 2019-03-01 08:24 | Outpatient (CLI) | payer OTHER, SELFPAY ==
[2018-12-09 13:56] VITALS: BMI 39.1
[2019-03-01 08:13] VITALS: BMI 37.5
--- NOTE | 2019-03-01 08:26 | RAD_ITS ---
STUDY: X-RAY CHEST REASON FOR EXAM: Male, 58 years old. 3 week history of cough. TECHNIQUE: PA and lateral views of the chest. COMPARISON: Comparison is made with prior study dated December 04, 2018. FINDINGS: The lungs are clear and expanded. There is no demonstrated pleural abnormality. Normal size heart. Normal mediastinum and dale. Normal visualized pulmonary arteries. Normal visualized aortic arch and descending thoracic aorta. There are diffuse degenerative changes of the visualized thoracic spine. Normal visualized ribs, clavicles, and shoulders. There is no demonstrated abnormality of the visualized soft tissue structures of the upper abdomen. RAD/Chest PA and Lateral IMPRESSION: No acute abnormality is seen. Electronically Signed: Cirilo Carias, at 9:19 EST , Service support ,
== END ==
PROVIDERS: Family Provider Family Medicine; PCP Family Medicine; Referring Provider Physician Assistant; Visit Provider Physician Assistant
DX: R05 Cough (principal)
CPT/HCPCS: 71046

== ENCOUNTER 2019-04-12 09:30 | Outpatient (RCR) | payer OTHER, SELFPAY ==
[2018-12-09 13:56] VITALS: BMI 39.1
[2019-04-08 12:46] VITALS: BMI 37.5
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
--- NOTE | 2019-05-28 13:37 | HP.PT.NRP ---
HP - Discharge Summary (1) - Patient Information ALISON MONAE was seen in my office for initial evaluation on 04/08/19. The following Plan of Care was established for this patient: Initial Frequency: 1-2x /Week Initial Duration: 2-4 Weeks - Anticipated Interventions Patient/Client Instruction: Educate patient on: Condition, Plan of Care For the Purpose of:: To increase tolerance to activity/condition/position For the Purpose of:: To increase tolerance to activity/condition/position This patient was last seen in our office 04/12/19. Pertinent comments regarding their Physical therapy will appear below: Pt seen two visits of positional treatments for vertigo. He was to f/u a week later but did not schedule or attend. At this point, it has been over two weeks and I will discontinue due to nonattendance. At this point I will be discontinuing this patient from physical therapy. I would be happy to see this patient again in the future if found appropriate by the physician. Thank you! Himanshu Robles, DPT, OCS, CSCS
== END 2019-04-12 19:00 | disposition home or self-care (01) ==
LOC: PT 09:30
PROVIDERS: PCP Family Medicine; Referring Provider Otolaryngology; Visit Provider Otolaryngology
DX: H81.10 Benign paroxysmal vertigo, unspecified ear (principal)
CPT/HCPCS: 97112; 97161

== ENCOUNTER → 2019-05-31 09:09 | Outpatient (CLI) | payer OTHER, SELFPAY ==
[2018-12-09 13:56] VITALS: BMI 39.1
[2019-04-08 12:46] VITALS: BMI 37.5
[2019-05-31 10:54] LABS: AST(SGOT) 15 U/L (15-37); Alanine Aminotransfer ALT/SGPT 26 U/L (16-61); Albumin, Serum 3.6 g/dL (3.2-5.0); Alkaline Phosphatase 80 U/L (45-117); Bilirubin, Direct 0.14 mg/dL (0.00-0.30); Cholesterol 173 mg/dL (200); Globulin 3.7 g/dL (2.2-4.2); High Density Lipoprotein 38 mg/dL; Protein, Total 7.3 g/dL (6.4-8.2); Triglycerides 142 mg/dL; Very Low Density Lipoprotein 28 mg/dL (5-40)
== END ==
PROVIDERS: PCP Family Medicine; Referring Provider Internal Medicine Cardiovascular Disease; Visit Provider Internal Medicine Cardiovascular Disease
DX: E78.5 Hyperlipidemia, unspecified (principal); I25.10 Atherosclerotic heart disease of native coronary artery without angina pectoris
CPT/HCPCS: 36415; 80061; 80076

== ENCOUNTER → 2019-11-22 08:31 | Outpatient (CLI) | payer BC, SELFPAY ==
[2018-12-09 13:56] VITALS: BMI 39.1
[2019-10-16 09:00] VITALS: BMI 39.4
[2019-11-22 09:38] LABS: AST(SGOT) 17 U/L (15-37); Alanine Aminotransfer ALT/SGPT 32 U/L (16-61); Albumin, Serum 3.7 g/dL (3.2-5.0); Alkaline Phosphatase 72 U/L (45-117); Bilirubin, Direct 0.13 mg/dL (0.00-0.30); Cholesterol 179 mg/dL (200); Globulin 3.7 g/dL (2.2-4.2); High Density Lipoprotein 42 mg/dL; Protein, Total 7.4 g/dL (6.4-8.2); Triglycerides 125 mg/dL; Very Low Density Lipoprotein 25 mg/dL (5-40)
== END ==
PROVIDERS: PCP Family Medicine; Referring Provider Internal Medicine Cardiovascular Disease; Visit Provider Internal Medicine Cardiovascular Disease
DX: E78.00 Pure hypercholesterolemia, unspecified (principal); E78.5 Hyperlipidemia, unspecified
CPT/HCPCS: 36415; 80061; 80076

== ENCOUNTER → 2020-01-17 12:04 | Outpatient (CLI) | payer BC, SELFPAY ==
[2018-12-09 13:56] VITALS: BMI 39.1
[2019-10-16 09:00] VITALS: BMI 39.4
--- NOTE | 2020-01-17 | LES_PTH ---
PATIENT: ALISON MONAE LOC: [facility] U#:[id number] AGE/SX: 64/M ROOM: RE01/17/[address]: Dr. Himanshu Echevarria MD : 1960 BED: DIS: SPEC #: [id number] RECD: 01/17/20 12:04 STATUS: MARK BETTY #: [id number] KAREN: 01/17/20 00:[address]: Himanshu Echevarria DEPT: SURGICAL PATHOLOGY RECD BY: Denita Sun ENTERED: 01/18/20 05:48 SP TYPE: Lesion OTHR DR: Dr. 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 Solar elastosis. AM:chelsy 01/18/20 COMMENT Case has been reviewed in consultation with Dr. Joy who concurs with the above diagnosis. IDC:SJ MICROSCOPIC DESCRIPTION Slides are reviewed. GROSS DESCRIPTION Received in fixative is one container labeled with the patient's name and designated lesion in front of left ear. The specimen consists of a piece of crabtree-white skin ellipse measuring 1.7 x 1 cm and up to 0.3 cm in thickness. The specimen is inked, serially sectioned and submitted entirely in one cassette. / SJ:chelsy 01/17/20 TC:0 CPT: 49570
== END ==
PROVIDERS: PCP Family Medicine; Referring Provider Otolaryngology; Visit Provider Otolaryngology
DX: L98.9 Disorder of the skin and subcutaneous tissue, unspecified (principal)
CPT/HCPCS: 88305

== ENCOUNTER → 2020-04-15 08:37 | Outpatient (CLI) | payer BC, SELFPAY ==
[2018-12-09 13:56] VITALS: BMI 39.1
[2019-10-16 09:00] VITALS: BMI 39.4
[2020-04-15 10:11] LABS: AST(SGOT) 13 U/L (15-37); Alanine Aminotransfer ALT/SGPT 29 U/L (16-61); Albumin, Serum 3.7 g/dL (3.2-5.0); Alkaline Phosphatase 77 U/L (45-117); Bilirubin, Direct 0.17 mg/dL (0.00-0.30); Cholesterol 162 mg/dL (200); Globulin 3.6 g/dL (2.2-4.2); High Density Lipoprotein 38 mg/dL; Protein, Total 7.3 g/dL (6.4-8.2); Triglycerides 195 mg/dL; Very Low Density Lipoprotein 39 mg/dL (5-40)
== END ==
PROVIDERS: PCP Family Medicine; Referring Provider Internal Medicine Cardiovascular Disease; Visit Provider Internal Medicine Cardiovascular Disease
DX: E78.00 Pure hypercholesterolemia, unspecified (principal); E78.5 Hyperlipidemia, unspecified
CPT/HCPCS: 36415; 80061; 80076

== ENCOUNTER → 2020-10-21 08:57 | Outpatient (CLI) | payer BC, SELFPAY ==
[2018-12-09 13:56] VITALS: BMI 39.1
[2020-05-03 09:01] VITALS: BMI 38.7
[2020-10-21 09:54] LABS: AST(SGOT) 16 U/L (15-37); Alanine Aminotransfer ALT/SGPT 28 U/L (16-61); Albumin, Serum 3.5 g/dL (3.2-5.0); Alkaline Phosphatase 59 U/L (45-117); Bilirubin, Direct 0.12 mg/dL (0.00-0.30); Cholesterol 135 mg/dL (200); Globulin 3.5 g/dL (2.2-4.2); High Density Lipoprotein 40 mg/dL; Triglycerides 93 mg/dL; Very Low Density Lipoprotein 19 mg/dL (5-40)
== END ==
PROVIDERS: PCP Family Medicine; Referring Provider Internal Medicine Cardiovascular Disease; Visit Provider Internal Medicine Cardiovascular Disease
DX: E78.00 Pure hypercholesterolemia, unspecified (principal); E78.5 Hyperlipidemia, unspecified
CPT/HCPCS: 36415; 80061; 80076

== ENCOUNTER → 2021-08-06 | Outpatient (CLI) | payer SELFPAY ==
[2018-12-09 13:56] VITALS: BMI 39.1
[2021-08-06 12:29] LABS: Hemoglobin A1c 10.5 % (3.8-5.6)
== END | disposition home or self-care (01) ==
LOC: BIMLAB 10:14
PROVIDERS: PCP Family Medicine; Referring Provider Family Medicine; Visit Provider Family Medicine
DX: E11.9 Type 2 diabetes mellitus without complications (principal)
CPT/HCPCS: 36415; 83036

== ENCOUNTER → 2021-11-01 | Outpatient (CLI) | payer SELFPAY ==
[2018-12-09 13:56] VITALS: BMI 39.1
[2021-11-01 15:19] LABS: Hemoglobin A1c 9.3 % (3.8-5.6)
== END | disposition home or self-care (01) ==
PROVIDERS: PCP Family Medicine; Referring Provider Emergency Medicine; Visit Provider Emergency Medicine
DX: E11.9 Type 2 diabetes mellitus without complications (principal)
CPT/HCPCS: 36415; 83036

== ENCOUNTER → 2021-11-27 | Outpatient (CLI) | payer SELFPAY ==
[2018-12-09 13:56] VITALS: BMI 39.1
[2021-11-27 09:07] LABS: AST(SGOT) 14 U/L (15-37); Alanine Aminotransfer ALT/SGPT 27 U/L (16-61); Albumin, Serum 3.4 g/dL (3.2-5.0); Alkaline Phosphatase 73 U/L (45-117); Bilirubin, Direct 0.08 mg/dL (0.00-0.30); Cholesterol 162 mg/dL (200); Globulin 3.6 g/dL (2.2-4.2); High Density Lipoprotein 32 mg/dL; Triglycerides 319 mg/dL; Very Low Density Lipoprotein 64 mg/dL (5-40)
== END | disposition home or self-care (01) ==
PROVIDERS: PCP Family Medicine; Referring Provider Internal Medicine Cardiovascular Disease; Visit Provider Internal Medicine Cardiovascular Disease
DX: E78.00 Pure hypercholesterolemia, unspecified (principal)
CPT/HCPCS: 36415; 80061; 80076